=== PATIENT | male | born 1980 | race Caucasian/White ===

== ENCOUNTER 2023-03-26 20:36 | Outpatient (CLI) | payer OTHER, SELFPAY | END 2023-03-26 20:37 | disposition home or self-care (01) | LOC: SLEEP 20:36 | PROVIDERS: Visit Provider Chiropractor | DX: G47.33 Obstructive sleep apnea (adult) (pediatric) (principal); G25.81 Restless legs syndrome | CPT/HCPCS: 95810 ==